=== PATIENT | male | born 1950 | race African-American/Black ===

== ENCOUNTER 2016-08-27 07:45 | Day surgery (SDC) | payer OTHER ==
[2016-08-25 11:12] VITALS: BMI 31.6
[2016-08-27] MEDS ORDERED: ACETAMINOPHEN 325 MG TABLET (FP) PO PRN (07:53)
[2016-08-27] MEDS ORDERED: CIPROFLOXACIN 0.3% EYE DROPS 5 ML BOTTLE ONE (08:03)
[2016-08-27] MEDS: CIPROFLOXACIN HCL 0.3% OPHTH 2.5ML BOTTLE OP SCH ×3 (08:05→08:15)
[2016-08-27] MEDS: CYCLOPENTOLATE HCL 1% OPHTH SOLN 2 ML BOTTLE OP SCH ×3 (08:05→08:15)
[2016-08-27] MEDS: FLURBIPROFEN 0.03% OPHTH SOLN 2.5 ML BOTTLE OP SCH ×3 (08:05→08:15)
[2016-08-27] MEDS: PHENYLEPHRINE 2.5% OPHTH SOLN 15 ML BOTTLE OP SCH ×3 (08:05→08:15)
[2016-08-27] MEDS: TROPICAMIDE 1% OPHTH SOLN 15 ML BOTTLE OP SCH ×3 (08:05→08:15)
[2016-08-27] MEDS ORDERED: LIDOCAINE HCL 2% JELLY (5 ML/TUBE) TP ONE (08:52)
[2016-08-27] MEDS ORDERED: MIDAZOLAM HCL 2 MG/2 ML SINGLE DOSE VIAL ONE ×2 (09:10→09:11)
[2016-08-27] MEDS ORDERED: POVIDONE-IODINE 5% OPHTHALMIC PREP 30 ML SOLUTION OS ONE (09:13)
[2016-08-27] MEDS ORDERED: LIDOCAINE HCL/PF 2% SDV 5ML VIAL ONE (09:23)
[2016-08-27] MEDS ORDERED: LIDOCAINE HCL/PF 2% SDV 5ML VIAL INF ONE (09:26)
[2016-08-27] MEDS ORDERED: HYALURONATE SODIUM 14 MG/ML DISP.SYRIN IO ONE (09:27)
[2016-08-27] MEDS ORDERED: CHONDROITIN SU A/HYALUR SOD 1 KIT IO ONE (09:27)
[2016-08-27] MEDS ORDERED: BSS (NA/CA/MG/K) BALANCED SALT SOLUTION OPHTH SOLN 15 ML BOTTLE OS ONE (09:27)
[2016-08-27] MEDS ORDERED: EPINEPHrine/PF 1 MG/1 ML (1:1,000) AMPULE IO ONE (09:27)
[2016-08-27] MEDS ORDERED: LIDOCAINE HCL 1% PRESERVATIVE FREE - 30ML VIAL IO ONE (09:27)
[2016-08-27] MEDS ORDERED: TRYPAN BLUE 0.5 ML DISP.SYRIN IO ONE (09:27)
[2016-08-27] MEDS ORDERED: EPINEPHrine/PF 1 MG/1 ML (1:1,000) AMPULE SQ ONE (09:40)
[2016-08-27 10:45] VITALS: BP 115/76; PULSE 76; TEMP 98.5
--- NOTE | 2016-08-27 13:01 | OP ---
DATE OF OPERATION: 08/27/2016 PREOPERATIVE DIAGNOSIS: Mature cataract, left eye. POSTOPERATIVE DIAGNOSIS: Mature cataract, left eye. PROCEDURE: Phacoemulsification of left cataract with capsule stained using trypan blue and posterior chamber intraocular lens implantation. The lens used SN60WF , 20.0 diopter power, serial number [id number]. ANESTHESIA: Sub-Tenon/MAC. COMPLICATIONS: None. DESCRIPTION OF PROCEDURE: The patient was brought to the operating room and correctly identified along with the operative site as well as correct intraocular lens olsen. He was then prepped and draped in the usual sterile fashion including 5 mL of a betadine solution in the conjunctival sac and an eyelid drape. An eyelid speculum was then placed into the left eye. The cataract was inspected and noted to be white. There was no evidence of channels of fluid within the cataract. The eye was then attempted to be positioned centrally with the patient looking at the light. However, the patient was not able to do this and continued to look upward, not allowing good visualization of the cataract. Despite multiple attempts to reposition the patient, this was not possible. The decision then was made to give a sub-Tenon block. A small incision was made in the inferonasal conjunctivae, and 3 mL of 2% lidocaine were injected in the sub-Tenon space. The eye was then positioned centrally, and a paracentesis port was created. Intracameral lidocaine, approximately 0.5 mL, was given as well as epinephrine 1:1000, 1 mL diluted in 4 mL of BSS, was injected as the patient uses Flomax. Air was then placed into the eye and the capsule stained with trypan blue. Viscoelastic was then placed into the eye using an Arshinoff soft shell technique with Viscoat as well as HEALON GV, and a continuous circular capsulorrhexis was then performed without complication. The nucleus was then hydrodissected with BSS and removed with phacoemulsification. The cortical material was removed with irrigation and aspiration. Viscoelastic was injected to inflate the capsular bag. The lens was injected into the capsular bag. Viscoelastic was moved into the eye. A small amount of cortex was noted to be still present. However, this was not removed as there seemed to be pulling on the capsule. At the end of the surgery, all wounds were tested and found to be watertight. The intraocular lens was noted to be well centered and covered the anterior capsule border. Topical vancomycin given. The eye was patched and shielded and the patient was discharged from the operating room in a stable condition. ZAID ASHRAF M.D. [id number] MTDD
== END 2016-08-27 10:45 | disposition home or self-care (01) ==
LOC: JASU-SURG 07:45
PROVIDERS: ATTEND Ophthalmology
PROC: 08RK3JZ Replacement of Left Lens with Synthetic Substitute, Percutaneous Approach (ICD-10-PCS; principal; 2016-08-27 09:00)
DX: H25.092 Other age-related incipient cataract, left eye (principal)

== ENCOUNTER 2017-05-06 10:04 | Day surgery (SDC) | payer OTHER ==
[2017-05-04 13:45] VITALS: BMI 31.6
[~2017-05-06 10:04] MED LIST: ACETAMINOPHEN 325 MG TABLET (FP) PO PRN; CIPROFLOXACIN HCL 0.3% OPHTH 2.5ML BOTTLE OP SCH
[2017-05-06] MEDS ORDERED: CIPROFLOXACIN 0.3% EYE DROPS 5 ML BOTTLE ONE (10:16)
[2017-05-06] MEDS ORDERED: CIPROFLOXACIN 0.3% EYE DROPS 5 ML BOTTLE OD ONE ×3 (10:28→10:40)
[2017-05-06] MEDS ORDERED: MIDAZOLAM HCL 2 MG/2 ML SINGLE DOSE VIAL ONE (12:00)
[2017-05-06] MEDS ORDERED: TETRACAINE 0.5% OPHTH SOLN 2 ML BOTTLE OD ONE (12:07)
[2017-05-06] MEDS ORDERED: POVIDONE-IODINE 5% OPHTHALMIC PREP 30 ML SOLUTION OD ONE (12:08)
[2017-05-06] MEDS ORDERED: LIDOCAINE 1%/EPI 1:100000 (20 ML MULTI DOSE VIAL) IJ ONE (12:16)
[2017-05-06] MEDS ORDERED: BSS (NA/CA/MG/K) BALANCED SALT SOLUTION OPHTH SOLN 15 ML BOTTLE OD ONE (12:16)
[2017-05-06] MEDS ORDERED: KETOROLAC TROMETHAMINE 30 MG/1 ML VIAL ONE (12:34)
[2017-05-06] MEDS ORDERED: TRIAMCINOLONE ACET 40MG/1ML VIAL IM ONE (12:37)
[2017-05-06 13:00] VITALS: BP 131/63; PULSE 78
[2017-05-06 13:06] VITALS: TEMP 98.3
--- NOTE | 2017-05-06 14:02 | OP ---
DATE OF OPERATION: DATE OF DICTATION: 05/06/2017 PREOPERATIVE DIAGNOSIS: Pterygium, right eye. POSTOPERATIVE DIAGNOSIS: Pterygium, right eye. PROCEDURE: Excision of pterygium with conjunctival autograft, right eye. ANESTHESIA: Topical, MAC. COMPLICATIONS: None. PROCEDURE: The patient was brought to the operating room and correctly identified along with the operative site. He was then prepped and draped in the usual sterile fashion, including 5% Betadine solution in the conjunctival sac and an eyelid drape. An eyelid speculum was then placed into the right eye. The borders of the pterygium were marked. Nasally to the pterygium a small amount of band keratopathy was noted. Two relaxing incisions in the conjunctiva were made superior and inferior to the pterygium and then dissection was taken down to bare sclera with Stephanie scissors. The pterygium was noted to be easily freed from the corneal surface with blunt dissection using the a weckspear sponge and colibri forceps. Marsh's membrane was then polished using a 57 blade. The band keratopathy was also polished using a 57 blade until it was no longer present. The pterygium was then excised at its base with care made not to damage the medial rectus tendon by elevating the pterygium during the excision. The surrounding conjunctiva was noted to be thin. The conjunctival defect was measured and found to be 6 mm vertically by 3 mm horizontally. Attention was then placed to supratemporal conjunctiva and an appropriate-sized conjunctival autograft was then created by injecting subconjunctival lidocaine and then dissecting the conjunctiva graft with Stephanie scissors. The conjunctival autograft was then secured in place using four 10-0 nylon interrupted sutures. At the end of the procedure, this conjunctival autograft was noted to be well secured. Subconjunctival Kenalog given at the site of the pterygium excision. Topical vancomycin given. The eye patched and the patient discharged from the operating room in a stable condition. ZAID ASHRAF M.D. [id number] MTDD
--- NOTE | 2017-05-08 10:30 | PATH ---
Surgical Pathology Report Patient Name: CLARY LOUIS [facility]. Rec. #: [id number] /Age/Gender: 1950 (Age: 66) / M Account: [id number] Location: [facility] Taken: 05/06/2017 Received: 05/06/2017 Reported: 05/08/2017 Physicians: Sung Hurst M.D. Specimen(s) Received PTERYGIUM, RIGHT EYE Clinical History Pterygium right eye Final Diagnosis CONJUNCTIVA, RIGHT EYE, BIOPSY: PTERYGIUM. Electronically Signed Chavo White M.D. Gross Description Received in formalin, labeled "nasal pterygium" is a troncoso, irregular portion of soft tissue measuring 0.4 cm. in greatest dimension. The specimen is submitted in toto in one cassette. 05/07/201705/07/2017
== END 2017-05-06 14:00 | disposition home or self-care (01) ==
LOC: JASU-SURG 10:04
PROVIDERS: ATTEND Ophthalmology
PROC: 08U007Z Supplement of Right Eye with Autologous Tissue Substitute, Open Approach (ICD-10-PCS; principal; 2017-05-06 12:00)
DX: H11.001 Unspecified pterygium of right eye (principal)
CPT/HCPCS: 88304-TC

== ENCOUNTER 2017-10-21 10:07 | Day surgery (SDC) | payer OTHER ==
[2017-10-20 15:00] VITALS: BMI 29.9
[~2017-10-21 10:07] MED LIST changes: -CIPROFLOXACIN HCL 0.3% OPHTH 2.5ML BOTTLE OP SCH; +CYCLOPENTOLATE HCL 1% OPHTH SOLN 2 ML BOTTLE OP SCH; +KETOROLAC TROMETHAMINE 0.5% EYE DROP 1 DROP DROPS OP SCH; +OFLOXACIN 0.3% OPHTHALMIC SOLUTION 5 ML BOTTLE OP SCH; +PHENYLEPHRINE 2.5% OPHTH SOLN 15 ML BOTTLE OP SCH; +TROPICAMIDE 1% OPHTH SOLN 15 ML BOTTLE OP SCH
[2017-10-21] MEDS ORDERED: KETOROLAC TROMETHAMINE 0.5% EYE DROP 1 DROP DROPS ONE (10:30)
[2017-10-21] MEDS ORDERED: PHENYLEPHRINE 2.5% OPHTH SOLN 15 ML BOTTLE ONE (10:30)
[2017-10-21] MEDS ORDERED: TROPICAMIDE 1% OPHTH SOLN 15 ML BOTTLE ONE (10:30)
[2017-10-21] MEDS ORDERED: CYCLOPENTOLATE HCL 1% OPHTH SOLN 2 ML BOTTLE ONE (10:30)
[2017-10-21] MEDS ORDERED: OFLOXACIN 0.3% OPHTHALMIC SOLUTION 5 ML BOTTLE ONE (10:30)
[2017-10-21 10:41] VITALS: TEMP 97.7
[2017-10-21] MEDS ORDERED: MIDAZOLAM HCL 2 MG/2 ML SINGLE DOSE VIAL ONE (11:32)
[2017-10-21] MEDS ORDERED: TETRACAINE 0.5% OPHTH SOLN 2 ML BOTTLE OD ONE (11:33)
[2017-10-21] MEDS ORDERED: POVIDONE-IODINE 5% OPHTHALMIC PREP 30 ML SOLUTION OD ONE (11:36)
[2017-10-21] MEDS ORDERED: CHONDROITIN SU A/HYALUR SOD 1 KIT IO ONE (11:47)
[2017-10-21] MEDS ORDERED: EPINEPHrine/PF 1 MG/1 ML (1:1,000) AMPULE IO ONE (11:47)
[2017-10-21] MEDS ORDERED: LIDOCAINE HCL 1% PRESERVATIVE FREE - 30ML VIAL IO ONE (11:47)
[2017-10-21] MEDS ORDERED: TRYPAN BLUE 0.5 ML DISP.SYRIN IO ONE (11:47)
[2017-10-21] MEDS ORDERED: BSS (NA/CA/MG/K) BALANCED SALT SOLUTION OPHTH SOLN 15 ML BOTTLE OD ONE (11:47)
[2017-10-21] MEDS ORDERED: EPINEPHrine/PF 1 MG/1 ML (1:1,000) AMPULE SQ ONE (11:53)
--- NOTE | 2017-10-21 12:55 | SPEC ---
DATE OF OPERATION: DATE OF DICTATION: 10/21/2017 OPERATION: Phacoemulsification of right eye cataract, capsular staining with Trypan blue and intraocular lens implantation, lens used SN60WF, 20.5 diopter power, serial No. [id number]. PREOPERATIVE DIAGNOSIS: Cataract right eye. POSTOPERATIVE DIAGNOSIS: Cataract right eye. SURGEON: Sung Hurst M.D. ANESTHESIA: Topical MAC. COMPLICATIONS: None. PROCEDURE: The patient was brought to the operating room and correctly identified along with the operative site as well as correct intraocular lens olsen. The patient was then prepped and draped in the usual sterile fashion including 5% Betadine solution in the conjunctival sac and an eyelid drape. An eyelid speculum was then placed into the operative eye. The eye was inspected and a poor red reflex was noted. A paracentesis port was created and .5 mL of intracameral preservative-free lidocaine 1% was given. Beneath an air bubble, the capsule was then stained with Trypan blue. The Trypan blue was then irrigated from the eye with balanced salt solution (BBS). Viscoelastic was injected to inflate the anterior chamber. A temporal clear corneal would was created. A continuous circular capsulorrhexis was performed. The nucleus was then hydro-dissected and hydro-delineated was BSS and removed with phacoemulsification via [id number] approach. The remaining cortical material was irrigated and aspirated from the eye. Viscoelastic was injected in the anterior chamber to inflate the capsular bag. The intraocular lens was then injected into the bag. The Viscoelastic was irrigated and aspirated from the eye. All wounds were tested and found to be watertight. No suture was placed. The intraocular lens was noted to be well centered and covered by the anterior capsular border. Topical Vancomycin was given. The eye was patched and shielded. The patient was discharged from the operating room in stable condition. Geovany [id number]
[2017-10-21 13:19] VITALS: BP 124/61; PULSE 72
== END 2017-10-21 13:21 | disposition home or self-care (01) ==
LOC: JASU-SURG 10:07
PROVIDERS: ATTEND Ophthalmology
PROC: 08RJ3JZ Replacement of Right Lens with Synthetic Substitute, Percutaneous Approach (ICD-10-PCS; principal; 2017-10-21 10:00)
DX: H26.8 Other specified cataract (principal)